=== PATIENT | female | born 1975 | race African-American/Black ===

== ENCOUNTER 2019-10-09 09:19 | Emergency (ER) | payer OTHER ==
[~2019-10-09] VITALS: Ht 165.1 cm; Wt 77.1 kg
[~2019-10-09 09:19] MED LIST: AMLODIPINE BESY10 MG PO; HYDROCHLOROTHIA50 MG PO; PRINIVIL20 MG PO; TRAMADOL200 MG PO; TRANDATE 200 M200 MG PO; VITAMIN D1000 UNI1 PO
[2019-10-09 10:01] LABS: ABSOLUTE NEUTROPHILS 5.2 thou/uL (1.4-8.2); BASOPHILS 0.7 % (0.0-2.0); HEMATOCRIT 43.8 % (37.0-47.0); HEMOGLOBIN 15.1 gm/dL (12.0-15.0); LYMPHOCYTES 14.9 % (24.0-44.0); MCH 32.5 pg (26.0-34.0); MCHC 34.5 g/dL (28.0-37.0); MCV 94.2 fL (80.0-100.0); MONOCYTES 4.5 % (1.0-8.0); PLATELET COUNT 222 thou/uL (150-400); POLYS 78.9 % (36.0-66.0); RBC 4.64 mil/uL (4.20-5.00); RDW 12.5 % (10.5-14.5); WBC 6.6 thou/uL (4.0-11.0)
[2019-10-09 10:07] LABS: CALCIUM 8.6 mg/dL (8.5-10.1); POTASSIUM 3.8 mmol/L (3.5-5.1)
[2019-10-09] MEDS ORDERED: ZESTRIL20 MG PO (14:26)
[2019-10-09] MEDS ORDERED: HYDROCHLOROTHIA25 M2 PO (14:26)
[2019-10-09] MEDS ORDERED: MECLIZINE HCL25 M1 PO (14:27)
[2019-10-09 14:37] VITALS: BP 159/94
== END 2019-10-09 14:37 | disposition home or self-care (01) ==
LOC: ER 09:19
PROVIDERS: Emergency Medicine
DX: R51 Headache (principal); R42 Dizziness and giddiness; I16.0 Hypertensive urgency; Z79.899 Other long term (current) drug therapy; Z88.8 Allergy status to other drugs, medicaments and biological substances

== ENCOUNTER 2020-04-23 18:26 | Emergency (ER) | payer OTHER ==
[~2020-04-23] VITALS: Ht 167.6 cm; Wt 80.7 kg
[~2020-04-23 18:26] MED LIST changes: +HYDROCHLOROTHIA25 M2 PO; +MECLIZINE HCL25 M1 PO; +ZESTRIL20 MG PO
[2020-04-23] MEDS ORDERED: ULTRAM 50MG TAB50 MG PO (20:38)
[2020-04-23 20:45] VITALS: BP 192/119
== END 2020-04-23 20:45 | disposition home or self-care (01) ==
LOC: ER 18:26
DX: S62.396A Other fracture of fifth metacarpal bone, right hand, initial encounter for closed fracture (principal); I10 Essential (primary) hypertension; Z79.899 Other long term (current) drug therapy; Z88.8 Allergy status to other drugs, medicaments and biological substances; W51.XXXA Accidental striking against or bumped into by another person, initial encounter; Y93.89 Activity, other specified; Y92.89 Other specified places as the place of occurrence of the external cause; Y99.8 Other external cause status